=== PATIENT | female | born 1950 | race Caucasian/White ===

== ENCOUNTER → 2020-09-10 | Outpatient (CLI) | payer OTHER ==
[~2020-09-10] MED LIST: ALPHA LIPOIC A600 M1 PO; AMITIZA8 MCG PO; ASHWAGANDHA RO300 MG PO; BUTALBIT-ACETA1 EACH PO; CO-ENZYME Q-1010 MG PO; FISH OIL 1,0001 EAC9 PO; KLONOPIN1 MG PO; LINZESS290 MCG PO; MULTI VITAMIN1 EACH PO; NEXIUM 40 MG CA40 M1 PO; ONDANSETRON HCL8 MG PO; PHENTERMINE H37.5 MG PO; POTASSIUM CHLO10 ME1 PO; ROXICODONE15 MG PO; SEROQUEL300 MG PO; XANAX 0.25 MG0.25 MG PO; [UNRECOGNIZED DRUG - OTHER] PO
== END ==
LOC: LAB 14:33
PROVIDERS: ATTEND Internal Medicine Gastroenterology
DX: Z01.812 Encounter for preprocedural laboratory examination (principal); Z20.822 Contact with and (suspected) exposure to COVID-19

== ENCOUNTER → 2020-09-15 | Outpatient (CLI) | payer OTHER ==
[~2020-09-15] VITALS: Ht 162.6 cm; Wt 64.9 kg
--- NOTE | 2020-09-17 17:06 | PATH ---
[facility] [place] [address] PATHOLOGY RPT PROCEDURE Name: NEDRA RM Room #: [id number] Admission: 09/15/20 Date of : 50 Discharge: Report #: [id number] Path Case #: [id number] [facility] Accession Number: [id number] . 01 Material submitted: . PART A: gastrointestinal site - BIOPSY GASTRIC ULCERS PART B: gastrointestinal site - BIOPSY RANDOM GASTRIC PART C: cecum - BIOPSY CECAL POLYP PART D: colon - BIOPSY TRANSVERSE COLON POLYP. Modifiers: transverse . 01 Clinical history: . EGD POSITIVE COLOGUARD, CHRONIC GERD GASTRIC ULCERS, HIATAL HERNIA, POLYPS,HEMORRHOIDS . 02 Diagnosis: A. Gastric mucosa, gastric ulcers, endoscopic biopsy: - Fibrotic lamina propria with hemorrhage compatible with an ulcer base. - No active ulceration identified. - Moderate reactive gastropathy within the intact fragments. - Negative for intestinal metaplasia or atrophy. - Negative for Helicobacter pylori (properly controlled immunohistochemical stain performed). . B. Gastric mucosa, random gastric, rule out H. pylori, endoscopic biopsy: - Moderate reactive gastropathy. - Negative for intestinal metaplasia or atrophy. - Negative for Helicobacter pylori (properly controlled immunohistochemical stain performed). . C. Polyp, cecal polyp, endoscopic biopsy: - Tubular adenoma. - Negative for high-grade dysplasia. . D. Polyp, transverse colon polyp, endoscopic biopsy: - Reactive changes along with hyperplastic changes as well as lymphoid aggregate. - Negative for dysplasia. (IUV:pit 09/17/2020) [facility] 09/17/2020 1252 Local . 02 Electronically signed: . Estelita Oneill MD, Pathologist NPI- [id number] . 01 Gross description: . A. The specimen is received in formalin, [place] "[place] [address] PATHOLOGY RPT PROCEDURE Name: NEDRA RM Room #: REG CLI [facility]#: [id number] Admission: 09/15/20 Date of : 50 Discharge: Report #: [id number] Path Case #: [id number] biopsy gastric ulcers". Received are three segments of pale recinos tissue ranging in size from 0.4-0.5 cm in maximum dimensions. The specimen is submitted entirely in cassette A1. . B. The specimen is received in formalin, labeled "Nedra Rm, biopsy random gastric". Received are four segments of pale recinos tissue ranging in size from 0.4-0.5 cm in maximum dimensions. The specimen is submitted entirely in cassette B1. . C. The specimen is received in formalin, labeled "Nedra [place], biopsy cecal polyp". Received are two segments of pale recinos tissue measuring 0.4 and 0.7 cm in maximum dimensions. The specimen is submitted entirely in cassette C1. . D. The specimen is received in formalin, labeled "Nedra [place], biopsy transverse colon polyp". Received is a segment of pale recinos tissue measuring 0.3 cm in maximum dimensions. The specimen is submitted entirely in cassette D1. (CAA; 09/16/2020) QAC/QAC 09/16/2020 1054 Local . 02 Pathologist provided ICD-10: K31.9, D12.0 . 02 CPT . 054064, 405607, [id number], [id number], [id number] Specimen Comment: A courtesy copy of this report has been sent to [phone], [phone] Specimen Comment: [id number] Specimen Comment: Report sent to / DR ROMERO Performed at: [address] [facility], [place], [place] [id number] MD Temo Thayer MD Phone: [phone] Performed at: [address] [facility] [id number] MD Estelita Oneill MD Phone: [phone]
== END | disposition home or self-care (01) ==
LOC: GI 07:36
PROVIDERS: ATTEND Internal Medicine Gastroenterology
DX: R19.5 Other fecal abnormalities (principal); D12.0 Benign neoplasm of cecum; K64.8 Other hemorrhoids; K31.9 Disease of stomach and duodenum, unspecified; K25.9 Gastric ulcer, unspecified as acute or chronic, without hemorrhage or perforation; K44.9 Diaphragmatic hernia without obstruction or gangrene; K21.9 Gastro-esophageal reflux disease without esophagitis; I10 Essential (primary) hypertension; G47.30 Sleep apnea, unspecified; Z98.890 Other specified postprocedural states; Z79.899 Other long term (current) drug therapy; Z87.891 Personal history of nicotine dependence; Z86.73 Personal history of transient ischemic attack (TIA), and cerebral infarction without residual deficits; Z87.442 Personal history of urinary calculi; Z85.3 Personal history of malignant neoplasm of breast; Z90.49 Acquired absence of other specified parts of digestive tract; Z90.710 Acquired absence of both cervix and uterus
CPT/HCPCS: 62110; 62900